=== PATIENT | female | born 1950 | race Caucasian/White ===

== ENCOUNTER → 2016-04-04 | Outpatient (CLI) | payer OTHER | LOC: FIMAGING 15:02 | PROVIDERS: ATTEND Family Medicine | DX: S92.52 Fracture of middle phalanx of lesser toe(s) (principal) ==

== ENCOUNTER → 2016-04-25 | Outpatient (CLI) | payer OTHER | LOC: FIMAGING 10:45 | PROVIDERS: ATTEND Family Medicine | DX: S92.521D Displaced fracture of middle phalanx of right lesser toe(s), subsequent encounter for fracture with routine healing (principal) ==

== ENCOUNTER → 2016-12-21 | Outpatient (CLI) | payer OTHER | LOC: BRMIMAGING 14:35 | PROVIDERS: ATTEND Family Medicine | DX: Z01.818 Encounter for other preprocedural examination (principal); E04.1 Nontoxic single thyroid nodule ==

== ENCOUNTER → 2017-10-04 | Outpatient (CLI) | payer OTHER ==
[~2017-10-04] MED LIST: IOPAMIDOL (ISOVUE-300) 100 ML BTL ONE; methylPREDNISolone SOD SUCC 125 MG/2 ML VIAL IVP ONE; methylPREDNISolone SOD SUCC 125 MG/2 ML VIAL ONE
== END ==
LOC: FIMAGING 12:46
PROVIDERS: ATTEND Physician Assistant
DX: K59.00 Constipation, unspecified (principal); I87.8 Other specified disorders of veins
CPT/HCPCS: 74177; J1200; J2930; Q9967; 82565-PO

== ENCOUNTER 2018-07-15 05:55 | Day surgery (SDC) | payer OTHER ==
[2018-07-15] MEDS ORDERED: LIDOCAINE 1% 5 ML SDV ONE (06:32)
[2018-07-15] MEDS ORDERED: ceFAZolin 1 GM/5 ML SYR ONE (06:33)
[2018-07-15] MEDS ORDERED: BUPIVACAINE/EPI 0.25% 30 ML SDV ONE (06:33)
[2018-07-15] MEDS ORDERED: LR 1,000 ML IV ONE (06:39)
[2018-07-15] MEDS ORDERED: MIDAZOLAM 2 MG/2 ML VIAL ONE (07:10)
[2018-07-15] MEDS ORDERED: SCOPOLAMINE HYDROBROMIDE 1 MG/3 DAYS PATCH TD ONE (07:10)
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
[2018-07-15] MEDS ORDERED: MIDAZOLAM 2 MG/2 ML VIAL IVP ONE (07:12)
[2018-07-15] MEDS ORDERED: SCOPOLAMINE HYDROBROMIDE 1 MG/3 DAYS PATCH TD SCH (07:15)
[2018-07-15] MEDS ORDERED: fentaNYL 100 MCG/2 ML INJ ONE ×2 (07:35→08:52)
[2018-07-15] MEDS ORDERED: PROPOFOL/EMULSION 500 MG/50 ML BOTTLE IV ONE (07:35)
[2018-07-15] MEDS ORDERED: LIDOCAINE 2% 100 MG/5 ML SYR ONE (07:35)
--- NOTE | 2018-07-15 07:52 | PDGENHP ---
History & Physical Chief Complaint: right heel pain chronic. left fifth hammertoe History of Present Illness: Chronic progressive pain not responsive to conservative care.
[2018-07-15] MEDS ORDERED: DEPO METHYLPREDNISOLONE 40 MG/ML SDV ONE (08:12)
[2018-07-15] MEDS ORDERED: HYDROmorphONE/DILAUDID 1 MG/ML INJ IVP PRN (08:31)
[2018-07-15] MEDS ORDERED: PROMETHAZINE HCL 25 MG/ML INJ IVP PRN (08:31)
[2018-07-15] MEDS ORDERED: MEPERIDINE 25 MG/0.5 ML AMP IVP PRN (08:31)
[2018-07-15] MEDS ORDERED: HYDROCODONE/APAP 5/325 TAB PO PRN (08:31)
[2018-07-15] MEDS ORDERED: LR 500 ML IV PRN (08:31)
[2018-07-15] MEDS ORDERED: NALOXONE HCL 0.4 MG/ML INJ IVP PRN (08:31)
--- NOTE | 2018-07-15 08:50 | POSTANESTH ---
Post Anesthetic Evaluation Cardiovascular Status: Normal, Stable Respiratory Status: Normal, Stable Level of Consciousness/Mental Status: Can Participate in Eval, Mildly Sleepy, Arousable Pain Control: Adequate, Prn Tx Ordered Nausea/Vomiting Control: Adequate, Prn Tx Ordered Complications Possibly Related to Anesthesia: None Noted
[2018-07-15] MEDS: fentaNYL 100 MCG/2 ML INJ IVP PRN ×2 (08:57→09:13)
[2018-07-15] MEDS ORDERED: HYDROCODONE/APAP 5/325 TAB ONE (09:52)
[2018-07-15 10:36] VITALS: BP 123/100
--- NOTE | 2018-07-17 13:23 | GCON ---
[f rep st] CONSULTATION DATE OF CONSULTATION: 07/15/2018 PREOPERATIVE DIAGNOSES: 1. Plantar fasciitis, right. 2. Hammertoe, fifth toe, left. ANESTHESIA: IV MAC plus a local infiltration of approximately 10 mL of 1% lidocaine plain, 5 mL in the left fifth toe and approximately 5 mL into the heel on the right foot. An additional 5 mL of 0.25% Marcaine with epinephrine was placed on the right heel only. ESTIMATED BLOOD LOSS: Less than 10 mL. COMPLICATIONS: There were no complications. DRAINS: No drains were placed into the operative site. TOURNIQUET TIME: There was a tourniquet utilized on the right lower extremity. Total tourniquet time was less than 15 minutes. ASSISTANTS: There were no assistants. SPECIMENS: There were no specimen sent to Pathology. DESCRIPTION OF PROCEDURE: The patient was taken to the operating room and placed in supine position. After local MAC anesthesia, both extremities were elevated, prepped and draped in the usual sterile OR fashion, achieving a sterile field about the entire distal aspect of the extremity. Attention was directed to the right foot. After elevation and exsanguination, tourniquet was inflated to 250 mmHg on the right lower extremity. Attention was directed to the medial aspect of the heel. Utilizing x-rays as a template for the initial stab incision, a small stab incision was made on the medial aspect of the right heel near the insertion of the medial plantar fascial band into the medial calcaneal tuberosity. A myofascial elevator was utilized to bluntly dissect the fascia from the subcutaneous layer. A trocar and tube were then placed from medial to lateral with a stab lateral incision into the heel. This stab incision was done and the trocar was placed through the lateral aspect with the tube. The trocar was then removed from the tube and there was a small opening on the tube itself, which was oriented dorsally to observe the fascia. Swabs were placed through the tube to clear any fatty debris. The scope was entered laterally into the tube. The fascia was identified and measured approximately 31 mm in total width. The medial 2/3 of the fascia was then measured, transferred to the curved or hooked blade and the blade was placed medial on the tube and utilizing the scope laterally, was visualized intraoperatively. The medial 2/3 of the plantar fascia was then released sharply. Upon release of the fascia, the intrinsic muscles could be seen intraoperatively. This blade was utilized multiple times to ensure that the fascia had an adequate release. The great toe was dorsiflexed intraoperatively to be ensured that the medial plantar fascia band was sufficiently released also and this was indeed the case. The trocar was then placed through the tube. The tube was rotated 180 degrees just to see if there were any plantar fascial strands below the tube and the scope was placed laterally and the intrinsic fat pad was seen intraoperatively through the opening in the tube and there were no intrinsic plantar fascial bands seen intraoperatively below the tube. At this point, the area was flushed copiously with dilute antibiotic solution. The trocar was placed through the tube. The tube was removed from the operative site. At this point, the skin was reapproximated utilizing 4-0 Prolene in a horizontal mattress-type suture. Sterile dressing was done, Adaptic, 4 x 4's, Min and Coban. The tourniquet was released. All digits immediately returned to uniform and pink color with normal capillary fill _less than 5 seconds_<5 seconds the right foot. The dressing was placed sterile. At this point , attention was directed to the left foot where the left fifth hammertoe correction was carried out. Attention was directed to the plantar aspect of the left fifth toe where approximately 0.5 inch linear incision was made in the sulcus of the toe. Flexor tendon was identified and released sharply, as well as the capsule of the proximal interphalangeal joint. Upon release of the interphalangeal joint capsule. The toe immediately derotated into corrected position. The flexor tendon, also with release, the toe immediately flattened out and appeared to be anatomically aligned. The fifth toe was taken through range of motion, dorsiflexion and plantarflexion, and was deemed again to be anatomically aligned. Skin closure was carried out via 4-0 Prolene in a simple interrupted suture on this incision. At this point, there was good active bleeding throughout the entire procedure. No tourniquets were utilized on the left side. Sterile 4 x 4's and Coban were placed over the toe. It should be noted that 0.25 mL of Kenalog 40 was placed into the scarring of the fourth toe dorsal lateral where there is a scar noted on the fourth toe. This was to eliminate any inflammation and swelling postoperatively on that toe and to hopefully atrophy some of the scar tissue. Again, the fifth toe, as sterile dressing was applied, Adaptic, 4 x 4's, Cobd[place]. The patient went in to Recovery in a satisfactory state with all vital signs stable. Her prognosis is very good for rapid recovery and she will be followed up x2 days postop at [facility]. /[id number]/MODL MTDD
[2018-07-18] MEDS ORDERED: PATCH REMOVAL 1 EA PATCH TD SCH (07:12)
== END 2018-07-15 10:38 | disposition home or self-care (01) ==
LOC: FSGY 05:55
PROVIDERS: ATTEND Podiatrist
PROC: 0QTR0ZZ Resection of Left Toe Phalanx, Open Approach (ICD-10-PCS; principal; 2018-07-15 07:15)
PROC: 0KNW4ZZ Release Left Foot Muscle, Percutaneous Endoscopic Approach (ICD-10-PCS; principal; 2018-07-15 07:15)
DX: M72.2 Plantar fascial fibromatosis (principal); M20.42 Other hammer toe(s) (acquired), left foot; Z86.711 Personal history of pulmonary embolism; E03.9 Hypothyroidism, unspecified
CPT/HCPCS: J1030; J2001; J2250; J2704; J3010